=== PATIENT | female | born 1945 | race Caucasian/White ===

== ENCOUNTER 2016-10-11 19:40 | Emergency (ER) | payer MEDICARE ==
[~2016-10-11] VITALS: Ht 152.4 cm; Wt 55.0 kg
[~2016-10-11 19:40] MED LIST: ACYC800T PO; BEN25 PO; BUSPIRONE 5 MG PO; CHOL400T41 PO; FES300 PO; FLONASE; GABA600T2 PO; HCTZ25 PO; KETO5DRO OP; MILK1POW MC; OMEP20TA86 PO; OXYC5TAB PO; PRAM0.252 PO; SODI354S PO; VALA500T PO
[2016-10-11 19:48] VITALS: BP 144/71; PULSE 68; RESP 24; O2SAT 97
--- NOTE | 2016-10-11 21:22 | ED.REPORT ---
HPI-Rash / Abscess Date of Service Oct 11, 2016 ED Provider: Dr. Lawson Pt is a 71 year old female with a hx of multiple back surgeries presenting to the ED complaining of an intermittent rash onset a few months ago, worsened recently. Associated symptoms include headache, severe pain in the area with the rash, and difficulty walking due to pain. She also reports a compression wound on her buttock due to accidentally burning herself while sitting on a heat pad. Now, she states that the wound has a white film surrounding it. She denies any itching or other symptoms at this time. Nursing Notes Stated Complaint: BOTH LEGS RASH Chief Complaint: Skin Rash/Abscess Nursing Notes Reviewed: Yes Allergies: Coded Allergies: Sulfa (Sulfonamide Antibiotics) (Verified Allergy, Severe, Rash,Itching, SOB, 10/11/16) latex (Verified Allergy, Severe, Rash,Itching,SOB, 10/11/16) lorazepam (Verified Allergy, Severe, Agitation, 10/11/16) Uncoded Allergies: MUSCLE RELAXERS (Allergy, Unknown, 12/10/15) Scheduled ([Buspirone 5mg]) 5 MG PO 1-2 times daily Acyclovir-Expunged Drug, Do Not Renew! (Acyclovir-Expunged Drug, Do Not Renew!) 800 Mg Tablet 800 MG PO 5XD Stop 06/02/2013 CHOLECALCIFEROL-Expunged Drug, Do Not Renew! (VITAMIN D-Expunged Drug, Do Not Renew!) 400 Unit Tablet 1,000 UNIT PO DAILY Ferrous Sulfate-Expunged Drug, Do Not Renew! (Feosol-Expunged Drug, Do Not Renew !) 325 Mg Tablet 325 MG PO TIDWM Gabapentin-Expunged Drug, Do Not Renew! (Gabapentin-Expunged Drug, Do Not Renew! ) 600 Mg Tablet 1,200 MG PO TID Hydrochlorothiazide-Expunged, Do Not Renew! (Hydrochlorothiazide-Expunged, Do Not Renew!) 25 Mg Tablet 25 MG PO DAILY Ketotifen Fumarate (Eye Itch Relief) 5 Ml Drops 1 DROP OP BID Milk Thistle (Milk Thistle) 1 Gm Powder 1 GM MC DAILY Omeprazole-Expunged Drug, Do Not Renew! (Omeprazole-Expunged Drug, Do Not Renew! ) 20 Mg Tablet.dr 20 MG PO DAILYAC Oxycodone Hcl (Oxecta) 5 Mg Tablet 20 MG PO 5XD Pramipexole-Expunged Drug, Do Not Renew! (Mirapex-Expunged Drug, Do Not Renew!) 0.25 Mg Tablet 0.25 MG PO HS Sodium,Potassium,&Mag Sulfates (Suprep Bowel Prep Kit) 354 Ml Soln.recon 354 ML PO UD Valacyclovir HCl-Expunged Drug, Do Not Renew! (Valacyclovir HCl-Expunged Drug, Do Not Renew!) 500 Mg Tablet 1,000 MG PO TID Scheduled PRN FLUTICASONE-Expunged Drug, Do Not Renew! (FLONASE-Expunged Drug, Do Not Renew!) 120 Sprays/16 Gm Aero 2 SPRAYS NA PRN diphenhydrAMINE-Expunged Drug, Do Not Renew! (diphenhydrAMINE-Expunged Drug, Do Not Renew!) 25 Mg Cap 25-50 MG PO PRN General Time Seen by MD: 21:21 Chief Complaint Rash Hx Obtained From: Patient Arrived By: Walk-in Onset Occurred: Onset unknown Symptom Duration: Since onset Location: : Lower extremity Quality: Painful Severity: Current: Moderate Severity: Maximum: Severe Associated with: Reports Headache Recent Healthcare: No recent hospitalization, Recent doctor visit Similar Sx Previous: No Past Medical History Past Medical History Notes: Multiple surgeries with complications, including MRSA in her back, back surgeries with significant nerve symptoms, chronic pain, and biopsy documented prurigo nodularis hepatitis c, chronic disseminated superficial actinic porokeratosis Hx: Relative accompanying her relates, that she has become much more anxious, seems intermittently confused, and much more fixated on her symptoms. Past Surgical History back surgery bladder surgery Reports: Hysterectomy Smoking History Light Tobacco Smoker Social History Alcohol Use: Denies alcohol use Drug Use: Denies drug use Other Social History: Good social support, , Local resident Ambulatory Status Independent Review of Systems Respiratory: Denies: Wheezing GI: Denies: Vomiting Skin: Reports Rash Complete sys rev & neg: except as marked. Neurologic: Reports: Headache, Denies: Weakness Physical Exam Initial Vital Signs Vital Signs (First) Date Time Temp Pulse Resp B/P Pulse Ox O2 Delivery O2 Flow Rate FiO2 10/11/16 19:48 36.1 68 24 144/71 97 Room Air Initial VS: Reviewed, Vital signs normal Head / Eyes: Atraumatic, Normocephalic, PERRL ENT: Mucous membranes moist, Conjunctiva normal, No scleral icterus Respiratory: Breath sounds normal, Clear to auscultation, No respiratory distress Cardiovascular: Regular rate & rhythm, Heart sounds normal, Intact distal pulses Abdomen / GI: Soft, Non-tender, No guarding, No rebound, No distention Extremities: Vascular intact, Neuro intact, No swelling Neurologic: Alert, Oriented, Nonfocal Psychiatric: Mood/affect normal, Behavior normal, Normal thought content General/Constitutional: Awake, Alert, Well appearing Skin: Warm, Dry Left great toe has a little healing scrape. Superficial skin breakdown and excoriation of left jimenez. Chronic venostasis changes in both legs Re-Eval/Medical Decision Med Decision/Clinical Course 71-year-old female with anterior jimenez skin breakdown. It appears there is some underlying chronic stasis dermatitis with excoriation. She also is really focused on some areas on the feet which are white and scaly. These appear to be just normal skin peeling. She is convinced that she has some sort of an abnormality which is coming out from the inside, possibly a parasite. She originally requested a biopsy but I do not think that would be helpful. She has some long-term chronic lower extremity radiculopathy. The pain in her feet is likely related to that and has nothing to do with these rashes. She also has minor skin breakdown of 2 sites on her left hip and right buttock. She is referred to a tube wrapper and back to her primary doctor. Re-Evaluation/Progress #1: Time of Eval: 22:06 Patient Status: Condition improved Re-Evaluation/Progress Note: Performed physical exam of the pt's wounds. Re-Evaluation/Progress #2: Time of Eval: 23:22 Patient Status: Condition improved Re-Evaluation/Progress Note: Pt feeling better and reassured. Discussed plan for discharge. Pt understands and agrees. Counseled Regarding: Diagnosis, Lab results, Need for follow-up, When/why to return to ED Discharge & Departure Impression: Primary Impression: Neurodermatitis Disposition: Home Discharge Condition All VS Reviewed: Yes Condition: No Change Additional Instructions: Apply the triamcinolone and mupirocin (Bactroban) to any open sores twice daily for the next 10 days. Keep them covered with Band-Aids. Do not pick or scratch at them at all. Follow-up with your regular doctor for further evaluation and treatment. Referrals: NOPCP (PCP) [facility] Francois Attestation Portions of this note were transcribed by Nazia Hernandez. I, Dr. Lawson personally performed the history, physical exam and medical decision-making; I reviewed and confirmed the accuracy of the information in the transcribed note. Signed by: Francois Dean, and [id number]. copies to: [facility] Chepe Lawson MD Oct 11, 2016 21:22 NAZIA HERNANDEZ Oct 11, 2016 21:50
[2016-10-11] MEDS ORDERED: Triamcinolone 0.1% 30 Gm Cream TOPICAL ONE (22:05)
[2016-10-11] MEDS ORDERED: Mupirocin 2% 22 Gm Ointment TOPICAL ONE (23:05)
[2016-10-11 23:24] VITALS: BP 164/94; PULSE 63; RESP 18; O2SAT 98
== END 2016-10-11 23:35 | disposition home or self-care (01) ==
LOC: SED 19:40
DX: L28.0 Lichen simplex chronicus (principal); R51 Headache; S31.819A Unspecified open wound of right buttock, initial encounter; X16.XXXA Contact with hot heating appliances, radiators and pipes, initial encounter; Y93.9 Activity, unspecified; Y92.9 Unspecified place or not applicable; Y99.8 Other external cause status; F17.200 Nicotine dependence, unspecified, uncomplicated; Z88.2 Allergy status to sulfonamides; Z88.5 Allergy status to narcotic agent; Z91.040 Latex allergy status

== ENCOUNTER 2016-10-13 16:42 | Emergency (ER) | payer MEDICARE ==
[~2016-10-13] VITALS: Ht 152.4 cm; Wt 54.5 kg
[2016-10-13 16:51] VITALS: BP 149/82; PULSE 68; RESP 12; O2SAT 96
--- NOTE | 2016-10-13 17:19 | ED.REPORT ---
HPI-General Illness Date of Service Oct 13, 2016 ED Provider: Ulises Bucio MD A 71 year old female with a history of severe spinal stenosis, back surgery x8 and spinal stimulator placement presents to the ED complaining of back pain. The pt had a spinal stimulator placed in recent months and has been having trouble with it since - states it's now 'not working' according t the rep. Pain is radiating from her left buttocks down her left lower extremity. The pain that she is experiencing now is identical in character to her pain before the surgery, but more severe. The pt called her PCP today, who recommended that she increase her dosage of oxycodone until she is seen in follow up in two days. She does not have enough medication to last until that point. Her last dose was three hours ago. The pt denies trauma to cause this pain. She also denies incontinence, urinary retention, fever, chills, chest pain or shortness of breath. Nursing Notes Stated Complaint: BACK/LEG PAIN Chief Complaint: Back Pain or Injury Nursing Notes Reviewed: Yes Allergies: Coded Allergies: Sulfa (Sulfonamide Antibiotics) (Verified Allergy, Severe, Rash,Itching, SOB, 10/11/16) latex (Verified Allergy, Severe, Rash,Itching,SOB, 10/11/16) lorazepam (Verified Allergy, Severe, Agitation, 10/11/16) Uncoded Allergies: MUSCLE RELAXERS (Allergy, Unknown, 12/10/15) Scheduled ([Buspirone 5mg]) 5 MG PO 1-2 times daily Acyclovir-Expunged Drug, Do Not Renew! (Acyclovir-Expunged Drug, Do Not Renew!) 800 Mg Tablet 800 MG PO 5XD Stop 06/02/2013 CHOLECALCIFEROL-Expunged Drug, Do Not Renew! (VITAMIN D-Expunged Drug, Do Not Renew!) 400 Unit Tablet 1,000 UNIT PO DAILY Ferrous Sulfate-Expunged Drug, Do Not Renew! (Feosol-Expunged Drug, Do Not Renew !) 325 Mg Tablet 325 MG PO TIDWM Gabapentin-Expunged Drug, Do Not Renew! (Gabapentin-Expunged Drug, Do Not Renew! ) 600 Mg Tablet 1,200 MG PO TID Hydrochlorothiazide-Expunged, Do Not Renew! (Hydrochlorothiazide-Expunged, Do Not Renew!) 25 Mg Tablet 25 MG PO DAILY Ketotifen Fumarate (Eye Itch Relief) 5 Ml Drops 1 DROP OP BID Milk Thistle (Milk Thistle) 1 Gm Powder 1 GM MC DAILY Omeprazole-Expunged Drug, Do Not Renew! (Omeprazole-Expunged Drug, Do Not Renew! ) 20 Mg Tablet.dr 20 MG PO DAILYAC Oxycodone Hcl (Oxecta) 5 Mg Tablet 20 MG PO 5XD Pramipexole-Expunged Drug, Do Not Renew! (Mirapex-Expunged Drug, Do Not Renew!) 0.25 Mg Tablet 0.25 MG PO HS Sodium,Potassium,&Mag Sulfates (Suprep Bowel Prep Kit) 354 Ml Soln.recon 354 ML PO UD Valacyclovir HCl-Expunged Drug, Do Not Renew! (Valacyclovir HCl-Expunged Drug, Do Not Renew!) 500 Mg Tablet 1,000 MG PO TID Scheduled PRN FLUTICASONE-Expunged Drug, Do Not Renew! (FLONASE-Expunged Drug, Do Not Renew!) 120 Sprays/16 Gm Aero 2 SPRAYS NA PRN diphenhydrAMINE-Expunged Drug, Do Not Renew! (diphenhydrAMINE-Expunged Drug, Do Not Renew!) 25 Mg Cap 25-50 MG PO PRN oxyCODONE-Acetaminophen 10-325 mg (oxyCODONE-Acetaminophen 10-325 mg) 1 Each Tablet 1 TABLET PO Q4H PRN PRN For Pain General Time Seen by MD: 17:19 Chief Complaint Back pain Hx Obtained From: Patient Arrived By: Wheelchair Sudden in Onset?: No Onset Occurred: More than a week ago... Symptom Duration: Since onset Recent Healthcare: No recent hospitalization, Recent doctor visit Similar Sx Previous: No Past Medical History Past Medical History Severe spinal stenosis Multiple surgeries with complications, including MRSA in her back, back surgeries with significant nerve symptoms, chronic pain, and biopsy documented prurigo nodularis hepatitis c, chronic disseminated superficial actinic porokeratosis Hx: Relative accompanying her relates, that she has become much more anxious, seems intermittently confused, and much more fixated on her symptoms. Past Surgical History back surgery x8 bladder surgery Reports: Hysterectomy Smoking History Light Tobacco Smoker Social History Alcohol Use: Denies alcohol use Drug Use: Denies drug use Other Social History: Good social support, , Local resident Ambulatory Status Independent Review of Systems denies urinary retention Full Review of Systems Constitutional: Denies: Chills, Fever Respiratory: Denies: Non-productive cough, Shortness of breath Cardiovascular: Denies: Chest pain GI: Denies: Abdominal pain, Vomiting Musculoskeletal: Reports: Back pain, Denies: Neck pain Skin: Denies Rash Neurologic: Denies: Bladder dysfunction, Bowel dysfunction Complete sys rev & neg: except as marked. Physical Exam Constitutional: Well-developed, well-nourished. Not diaphoretic. Head: Normocephalic and atraumatic. Mouth/Throat: Oropharynx is clear and moist. No oropharyngeal exudate. Eyes: EOM are normal. Pupils are equal, round, and reactive to light. Neck: Supple, no tracheal deviation. Cardiovascular: Normal rate, regular rhythm. Equal and intact distal pulses throughout. 2/6 systolic murmur. Pulmonary/Chest: Effort normal and breath sounds normal. No respiratory distress. Abdominal: Soft. No distension. There is no tenderness, rebound, or guarding. Bowel sounds present. Musculoskeletal: Range of motion grossly intact, moving all extremities. No edema or tenderness appreciated. Back: Spinal stimulator palpable in the right lower back. Not swollen or erythematous, looks intact. No spinal tenderness to palpation. Neurological: AOx3. Grossly nonfocal exam. Strength and sensation intact and equal to bilateral upper and lower extremities. Skin: Warm and dry, no rashes or pallor appreciated. Psychiatric: Appropriate mood and affect. Behavior appears normal. Vital Signs Vital Signs Date Time Temp Pulse Resp B/P Pulse Ox O2 Delivery O2 Flow Rate FiO2 10/13/16 16:51 36.3 68 12 149/82 96 Room Air Initial VS: Reviewed Re-Eval/Medical Decision Med Decision/Clinical Course In summary, 71-year-old female with chronic back pain presenting to the ED for evaluation of acute on chronic pain, presumably secondary to a problem with her nerve stimulator. She ran out of pain medication today, has an appointment on Friday. It appears that she has been getting her pain medication from the same providers over the past several months, so I feel comfortable prescribing her several days' worth of medication to get her through until her appointment, however we discussed that we would not be able to provide additional prescriptions from the emergency department going forward. Patient was agreeable to this. She has no red flags with respect to her back pain no urinary retention, no bowel or bladder incontinence, no fever, no sensory changes. Plan discharge with careful return precautions, follow-up on Friday. Source of Hx: Old records Time of Eval: 17:19 Re-Evaluation/Progress Note: Pt informed of the diagnosis and plan for discharge during the initial interview. The pt understands and agrees with the plan. All questions are addressed at this time. Counseled Regarding: Diagnosis, Need for follow-up, When/why to return to ED Discharge & Departure Primary Impression: Back pain Back pain location: back pain in unspecified location Chronicity: acute Back pain laterality: unspecified Qualified Code: M54.9 - Dorsalgia, unspecified Disposition: Home Discharge Condition All VS Reviewed: Yes Condition: Stable Patient Instructions: Back Pain (ED) Additional Instructions: Thank you for allowing us to be a part of your care. Keep your follow up appointment on Friday as planned. Return to the emergency department if you develop any new or worsening symptoms, lose control of your bowel or bladder, can't urinate, or if there's anything else of concern to you. Referrals: NOPCP (PCP) Scribe Attestation Portions of this note were transcribed by Tanner Fermin. I, Dr. Bucio personally performed the history, physical exam and medical decision-making; I reviewed and confirmed the accuracy of the information in the transcribed note. Signed by: Francois Peña, 10/13/2016 and 1844. Ulises Bucio MD Oct 13, 2016 17:19 TANNER FERMIN Oct 13, 2016 18:20
[2016-10-13] MEDS ORDERED: OXYC-466 PO (18:25)
[2016-10-13 18:30] VITALS: BP_SYST 140; PULSE 65; RESP 12; O2SAT 97
[2016-10-13 18:48] VITALS: BP_SYST 140; BP_SYST 149; BP_DIAS 79; BP_DIAS 82; PULSE 65; PULSE 68; RESP 12; O2SAT 96; O2SAT 97
== END 2016-10-13 18:49 | disposition home or self-care (01) ==
LOC: SED 16:42
DX: M54.9 Dorsalgia, unspecified (principal); Z90.710 Acquired absence of both cervix and uterus; Z79.899 Other long term (current) drug therapy; Z88.2 Allergy status to sulfonamides; Z88.5 Allergy status to narcotic agent; Z91.040 Latex allergy status

== ENCOUNTER 2017-01-05 12:23 | Emergency (ER) | payer MEDICARE ==
[~2017-01-05] VITALS: Ht 152.4 cm; Wt 54.5 kg
[~2017-01-05 12:23] MED LIST changes: +OXYC-466 PO
[2017-01-05 12:26] VITALS: BP 187/103; PULSE 80; RESP 16; O2SAT 100
--- NOTE | 2017-01-05 12:45 | ED.REPORT ---
HPI-Back Pain 40 and Over Date of Service Jan 05, 2017 ED Provider: Doc,Ed MD History of Present Illness: [facility]. She is requesting refill on her pain medication till the 14 when she states she will get her regular prescription. Patient denies injury, bowel or bladder injury Nursing Notes Stated Complaint: LOWER BACK PAIN Chief Complaint: Back Pain or Injury Nursing Notes Reviewed: Yes Allergies: Coded Allergies: Sulfa (Sulfonamide Antibiotics) (Verified Allergy, Severe, Rash,Itching, SOB, 01/05/17) latex (Verified Allergy, Severe, Rash,Itching,SOB, 01/05/17) lorazepam (Verified Allergy, Severe, Agitation, 01/05/17) Uncoded Allergies: MUSCLE RELAXERS (Allergy, Unknown, 12/10/15) Scheduled ([Buspirone 5mg]) 5 MG PO 1-2 times daily Acyclovir-Expunged Drug, Do Not Renew! (Acyclovir-Expunged Drug, Do Not Renew!) 800 Mg Tablet 800 MG PO 5XD Stop 06/02/2013 CHOLECALCIFEROL-Expunged Drug, Do Not Renew! (VITAMIN D-Expunged Drug, Do Not Renew!) 400 Unit Tablet 1,000 UNIT PO DAILY Ferrous Sulfate-Expunged Drug, Do Not Renew! (Feosol-Expunged Drug, Do Not Renew !) 325 Mg Tablet 325 MG PO TIDWM Gabapentin-Expunged Drug, Do Not Renew! (Gabapentin-Expunged Drug, Do Not Renew! ) 600 Mg Tablet 1,200 MG PO TID Hydrochlorothiazide-Expunged, Do Not Renew! (Hydrochlorothiazide-Expunged, Do Not Renew!) 25 Mg Tablet 25 MG PO DAILY Ketotifen Fumarate (Eye Itch Relief) 5 Ml Drops 1 DROP OP BID Milk Thistle (Milk Thistle) 1 Gm Powder 1 GM MC DAILY Omeprazole-Expunged Drug, Do Not Renew! (Omeprazole-Expunged Drug, Do Not Renew! ) 20 Mg Tablet.dr 20 MG PO DAILYAC Oxycodone Hcl (Oxecta) 5 Mg Tablet 20 MG PO 5XD Pramipexole-Expunged Drug, Do Not Renew! (Mirapex-Expunged Drug, Do Not Renew!) 0.25 Mg Tablet 0.25 MG PO HS Sodium,Potassium,&Mag Sulfates (Suprep Bowel Prep Kit) 354 Ml Soln.recon 354 ML PO UD Valacyclovir HCl-Expunged Drug, Do Not Renew! (Valacyclovir HCl-Expunged Drug, Do Not Renew!) 500 Mg Tablet 1,000 MG PO TID Scheduled PRN FLUTICASONE-Expunged Drug, Do Not Renew! (FLONASE-Expunged Drug, Do Not Renew!) 120 Sprays/16 Gm Aero 2 SPRAYS NA PRN diphenhydrAMINE-Expunged Drug, Do Not Renew! (diphenhydrAMINE-Expunged Drug, Do Not Renew!) 25 Mg Cap 25-50 MG PO PRN oxyCODONE-Acetaminophen 10-325 mg (oxyCODONE-Acetaminophen 10-325 mg) 1 Each Tablet 1 TABLET PO Q4H PRN PRN For Pain General Time Seen by MD: 12:45 Chief Complaint Other (chronic pain) Hx Obtained From: Patient Sudden in Onset?: No Past Medical History Past Medical History Severe spinal stenosis Multiple surgeries with complications, including MRSA in her back, back surgeries with significant nerve symptoms, chronic pain, and biopsy documented prurigo nodularis hepatitis c, chronic disseminated superficial actinic porokeratosis Hx: Relative accompanying her relates, that she has become much more anxious, seems intermittently confused, and much more fixated on her symptoms. Past Surgical History back surgery x8 bladder surgery Reports: Hysterectomy Smoking History Light Tobacco Smoker Social History Alcohol Use: Denies alcohol use Drug Use: Denies drug use Other Social History: Good social support, , Local resident Ambulatory Status Independent Review of Systems Basic Review of Systems Eyes: Vision NL, No discharge Skin: No bruising, No rash, No itch Psychiatric: Normal thought content Physical Exam Initial Vital Signs Vital Signs (First) Date Time Temp Pulse Resp B/P Pulse Ox O2 Delivery O2 Flow Rate FiO2 01/05/17 12:26 36.5 80 16 187/103 100 Room Air Initial VS: Reviewed, Vital signs abnormal Head / Eyes: Atraumatic, Normocephalic, PERRL ENT: Mucous membranes moist, Conjunctiva normal, No scleral icterus Neck: Supple, Non-tender, Full range of motion Lymphatic: No lymphadenopathy Extremities: Vascular intact, Neuro intact, No swelling, No tenderness Skin: Warm, Dry, No cyanosis Psychiatric: Mood/affect normal, Behavior normal, Normal thought content General/Constitutional: Awake, Alert, No acute distress Appearance / Presentation: Positive: Appears older than age the site on her back where she reports the scar is opening up is a superficial abrasion, no sign of infection Respiratory / Chest: Atraumatic, Breath sounds NL, Breath sounds = bilat, No respiratory distress Cardiovascular: Heart rate NL, Regular rhythm, Heart sounds NL Re-Eval/Medical Decision Med Decision/Clinical Course Patioent seen here on 10/13/2016 for same complaint. Warning sat that time were the ER would not be able to refill medication. Review of the [employer] indicates she has run out 5 times before and has been provided opiates. Discussed with Dr. Batista, will provided one percocet and she can call her provider tomorrow. Discharge & Departure Impression: Primary Impression: Chronic pain Chronic pain type: other chronic pain Qualified Code: G89.29 - Other chronic pain Additional Impression: Medication refill Disposition: Home Patient Instructions: Chronic Back Pain (ED), Chronic Pain (ED) Additional Instructions: I am sorry that you are having chronic pain. The rules governing chronic pain are very clear. The ER can not step in when you are receiving ongoing pain medication. As this has happened before, please discuss with your pain provider what options you have available to you. You have been provided 1 percocet in the ER. Please call the [facility] tomorrow. Referrals: Adrianna Birch MD (PCP) EDSupervising Provider for APC: Librado Sandoval DO copies to: Adrianna Birch MD, Sue ARNP Jan 05, 2017 12:45
[2017-01-05] MEDS ORDERED: oxyCODONE-Acetamin 10-325 mg Tablet PO ONE (13:10)
[2017-01-05 13:45] VITALS: BP 158/87; O2SAT 98
== END 2017-01-05 13:46 | disposition home or self-care (01) ==
LOC: SED 12:23
DX: G89.29 Other chronic pain (principal); F17.200 Nicotine dependence, unspecified, uncomplicated; Z86.14 Personal history of Methicillin resistant Staphylococcus aureus infection; Z76.0 Encounter for issue of repeat prescription; Z98.890 Other specified postprocedural states; Z88.2 Allergy status to sulfonamides; Z88.8 Allergy status to other drugs, medicaments and biological substances